=== PATIENT | male | born 1975 | race Caucasian/White ===

== ENCOUNTER → 2021-09-05 | Outpatient (CLI) | payer BC ==
[~2021-09-05] MED LIST: BEBTELOVIMAB (EUA) 175 MG/2 ML VIAL IV NR; SODIUM CHLORIDE 0.9% 500 ML 500 ML in EMPTY BAG 1 BAG IV PRN
[2021-09-05 12:43] VITALS: RESP 16; TEMP 98.2
[2021-09-05 13:59] VITALS: BP 117/72; PULSE 59
== END ==
LOC: PROCWHC3 12:07
PROVIDERS: ATTEND Pediatrics
DX: U07.1 COVID-19 (principal)
CPT/HCPCS: Q0222; M0222

== ENCOUNTER → 2024-10-18 | Outpatient (CLI) | payer OTHER ==
[2024-10-18 15:11] LABS: HCT 46.5 % (39.6-50.0); HGB 16.2 g/dL (13.0-17.0); MCH 31.2 pg (27.0-32.0); MCHC 34.8 g/dL (32.0-37.0); MCV 89.4 FL (80.0-97.0); NRBC Per 100 WBC 0 X 10*3/uL (0.00-0.01); Platelet Count 212 X 10*3/uL (140-440); RBC 5.20 X 10*6/uL (4.40-5.60); RDW 12.4 % (11.5-14.5); WBC 4.38 X 10*3/uL (4.50-10.00)
[2024-10-18 15:36] LABS: ALT 15 U/L (10-49); AST 16 U/L (14-35); Albumin 4.5 g/dL (3.8-4.9); Albumin/Globulin Ratio 2.05 Ratio (1.60-3.17); Alkaline Phosphatase 56 U/L (41-126); Anion Gap 11.50 mmol/L (4.00-12.00); BUN/Creat Ratio 15.82 Ratio (12.00-20.00); Blood Urea Nitrogen 17.4 mg/dL (9.0-27.0); Calcium 8.8 mg/dL (8.7-10.3); Carbon Dioxide 23.5 mmol/L (21.6-31.8); Chloride 105 mmol/L (96-109); Cholesterol 220.00 mg/dL (0.00-200.00); Globulin 2.2 g/dL (1.6-3.3); Glucose 101 mg/dL (70-110); HDL Cholesterol 65.70 mg/dL (40.00-60.00); LDL Cholesterol,Calculated 140.8 mg/dL (0.0-131.0); Potassium 4.2 mmol/L (3.5-5.5); Prostate Specific Antigen 0.65 ng/mL (0.000-2.500); Sodium 140 mmol/L (135-145); Total Protein 6.7 g/dL (6.2-8.2); Triglycerides 67.40 mg/dL (0.00-149.00); VLDL Calculation 13.48 mg/dL (5.00-40.00)
== END | disposition home or self-care (01) ==
LOC: LABWHC1 07:38
PROVIDERS: ATTEND Family Medicine
DX: Z00.00 Encounter for general adult medical examination without abnormal findings (principal)
CPT/HCPCS: 36415; 80053; 80061; 84153; 85027

== ENCOUNTER → 2024-10-30 | Outpatient (CLI) | payer OTHER ==
--- NOTE | 2024-10-30 18:27 | CT ---
EXAMINATION TYPE: CT heart w calcium score DATE OF EXAM: 10/30/2024 COMPARISON: None CLINICAL INDICATION: Male, 49 years old with history of R07.89 CHEST PAIN; PHH, CHEST PAIN TECHNIQUE: Prospective Gating was used. Slice thickness: 3mm. Density threshold (HU): 130, Pixel threshold: 3, Algorithm: discrete. CT DLP: 58.[address] CTDI: mGy Automated exposure control for dose reduction was used. FINDINGS: CT CALCIUM SCORING Coronary calcium is a marker for plaque (fatty deposits) in a blood vessel or atherosclerosis (harden ing of the arteries). The presence and amount of calcium detected in a coronary artery by the CT sca n, indicates the presence and amount of atherosclerotic plaque. These calcium deposits appear years before the development of heart disease symptoms such as chest pain and shortness of breath. A calcium score is computed for each of the coronary arteries based upon the volume and density of th e calcium deposits. This can be referred to as your calcified plaque burden. It does not correspond directly to the percentage of narrowing in the artery but does correlate with the severity of the un derlying coronary atherosclerosis. RESULTS Region: LM Calcium Score ([place]): .37 Volume (mm3): 1.1 Mass (g): .55 Region: RCA Calcium Score ([place]): 1.23 Volume (mm3): 3.68 Mass (g): 1.84 Region: LAD Calcium Score ([place]): 0 Volume (mm3): 0 Mass (g): 0 Region: CX Calcium Score ([place]): 1.1 Volume (mm3): 3.31 Mass (g): 1.66 Region: PDA Calcium Score ([place]): 0 Volume (mm3): 0 Mass (g): 0 Total: Calcium Score ([place]): 2.7 Volume (mm3): 8.1 Mass (g): 4.05 TOTAL CALCIUM SCORE: 2.7 IMPRESSION: Calcium Score: 1-10 Implication: Minimal identifable plaque. Risk of Coronary Artery Disease: Very unlikely, less than 10%. CALCIUM SCORE IMPLICATION RISK OF C ORONARY ARTERY DISEASE 0 No identifiable plaque Very low, generally less than 5% 1-10 Minimal identifiable plaque Very unlikely, less than 10% 11-100 Definite, at least mild atherosclerotic plaque Mild or m inimal coronary narrowings likely 101-400 Definite, at least moderate atherosclerotic plaque Mild coronary ar david disease highly likely, significant narrowing possible 401 or Higher Extensive atherosclerotic plaque High lik elihood of at least one significant coronary narrowing [facility], , 10/30/2024 6:25 PM
== END | disposition home or self-care (01) ==
LOC: RADCTMAIN 15:24
PROVIDERS: ATTEND Family Medicine
DX: R07.89 Other chest pain (principal)
CPT/HCPCS: 75571